=== PATIENT | female | born 1990 | race African-American/Black ===

== ENCOUNTER 2024-05-13 11:48 | Emergency (ER) | payer MEDICAID, SELFPAY ==
[2024-05-13 12:03] VITALS: BP 146/90; PULSE 82; TEMP 36.8; O2SAT 99; BMI 28.3
--- NOTE | 2024-05-13 15:40 | XR_ITS ---
The [address] [address] Patient Name: PRAVIN LOVELACE MRN: [id number] date: 1990 Sex: F Assigned Patient Location: ER Current Patient Location: ER Accession/Order Number: [id number] Exam Date: 05/13/2024 15:50 Report Date: 05/13/2024 16:57 At the request of: TREY PEDROZA Procedure: XR humerus LT EXAM: XR shoulder LT min 2V, XR humerus LT TECHNIQUE: Internal rotation, external rotation and scapular Y views left shoulder. AP and lateral views left humerus. HISTORY: Pain COMPARISON: None. FINDINGS: No fracture or dislocation. Soft tissues are unremarkable. No arthritic changes. XR/XR humerus LT IMPRESSION: No acute fracture or dislocation. Electronically authenticated by: LEIGH CHEUNG Date: 05/13/2024 16:57
--- NOTE | 2024-05-13 15:40 | XR_ITS ---
The [address] [address] Patient Name: PRAVIN LOVELACE MRN: [id number] date: 1990 Sex: F Assigned Patient Location: ER Current Patient Location: ER Accession/Order Number: [id number] Exam Date: 05/13/2024 15:50 Report Date: 05/13/2024 16:57 At the request of: TREY PEDROZA Procedure: XR shoulder LT min 2V EXAM: XR shoulder LT min 2V, XR humerus LT TECHNIQUE: Internal rotation, external rotation and scapular Y views left shoulder. AP and lateral views left humerus. HISTORY: Pain COMPARISON: None. FINDINGS: No fracture or dislocation. Soft tissues are unremarkable. No arthritic changes. XR/XR shoulder LT min 2V IMPRESSION: No acute fracture or dislocation. Electronically authenticated by: LEIGH CHEUNG Date: 05/13/2024 16:57
--- NOTE | 2024-05-13 15:41 | ED.UPPEXIN1 ---
Documented by User: HUGO Fried 05/13/24 17:21 HPI HPI - Extremity Injury (Upper) General Chief Complaint: Extremity Injury, Upper Stated Complaint: UPPER LEFT EXTREMITY LIMITED MOVEMENT Time Seen by Provider: 05/13/24 15:23 Source: patient Mode of arrival: walk-in Limitations: no limitations History of Present Illness HPI narrative: Patient is a 34-year-old female who presents to the emergency department for weakness in the left arm. She states 2 weeks ago she developed numbness to the left side of the face radiating into the left arm. She was seen at [place] emergency department and hospitalized with negative CT of the brain, negative cervical x-rays, chest x-ray. She also had an MRI of the brain and cervical spine while admitted. She had a telestroke consult, echocardiogram of the heart. She was discharged home with no medications. She states she is not able to see the specialist she was referred to in [place] for several months. She presents to this emergency department stating that she still having difficulty flexing her left arm at the elbow and feels weakness in the left bicep. She is requesting x-rays to see if her shoulder is dislocated. She reports pain radiating from the left glenohumeral joint into the left humerus. She is not concerned for . She denies any pain, weakness to the left forearm or hand although she does have occasional tingling to the left thumb. No falls or injuries. 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 Related Data Previous Rx's ?Medication ?Instructions ?Recorded methylprednisolone 4 mg tablets in See Rx Instructions .Route 05/13/24 a dose pack (Medrol (Driss)) .COMPLEX #21 ea Allergies Allergy/AdvReac Type Severity Reaction Status Date / Time No Known Drug Allergies Allergy Verified 05/13/24 12:09 Opioid HPI Opioid Management Most Recent Pain and Opioid Data: No Data to Display Review of Systems ROS Constitutional Denies: fever or chills Ears, nose, mouth, and throat Denies: throat pain Respiratory Denies: shortness of breath Gastrointestinal Denies: nausea or vomiting Musculoskeletal Reports: extremity pain and limited range of motion; Denies: back pain or neck pain Integumentary/Breast Denies: rash Neurological Reports: numbness in extremities and weakness in extremities; Denies: dizziness or vertigo Hematologic/Lymphatic Denies: easy bruising or easy bleeding PFSH PFS Social History Little interest or pleasure in doing things: not at all Feeling down, depressed, or hopeless: not at all Exam Narrative Exam Narrative: Gen.: Awake, alert, in no distress Head: Normocephalic, atraumatic ENT: Moist mucous membranes Respiratory: No respiratory distress Extremities: No bony tenderness of the left cervical spine or shoulder. Diffuse tenderness of the left glenohumeral joint with no palpable deformity. Limited abduction at the left shoulder and flexion at the left bicep. Normal movement of the fingers of the left hand with normal typewriter aligner strength of the left hand. Psych: Normal mood and affect Neuro: No focal neuro deficit Skin: Warm, dry, intact Constitutional Vital Signs, click to edit/add: Last Vital Signs Temp 98.3 F 05/13/24 12:03 Pulse 78 05/13/24 16:44 Resp 18 05/13/24 16:44 BP 160/100 H 05/13/24 16:44 Pulse Ox 98 05/13/24 16:44 O2 Del Method Room Air 05/13/24 12:03 Course Vital Signs Vital signs: Vital Signs Temperature 98.3 F 05/13/24 12:03 Pulse Rate 82 05/13/24 12:03 Respiratory Rate 18 05/13/24 12:03 Blood Pressure 146/90 H 05/13/24 12:03 Pulse Oximetry 99 05/13/24 12:03 Oxygen Delivery Method Room Air 05/13/24 12:03 Temperature 98.3 F 05/13/24 12:03 Pulse Rate 78 05/13/24 16:44 Respiratory Rate 18 05/13/24 16:44 Blood Pressure 160/100 H 05/13/24 16:44 Pulse Oximetry 98 05/13/24 16:44 Oxygen Delivery Method Room Air 05/13/24 12:03 MDM - Extremity Injury (Upper) MDM Narrative Medical decision making narrative: Patient's exam is consistent with weakness in the left upper arm. She has no other focal neurodeficits. She has distal sensation and movement to the left forearm and hand. The symptoms have been ongoing for 2 weeks, I did review her labs and the imaging studies from [facility] showing that the patient had an unremarkable MRI of the brain, MRI of the cervical spine as well as an echo. Patient is referred to neurology and orthopedics. She is placed on a steroid course. Follow-up with orthopedics and neurology and return to the ER if symptoms change or worsen. SHARED APC VISIT, PHYSICIAN ATTESTATION: [id number] I performed a substantive part of the MDM during the patient?s E/M visit. I personally evaluated and examined the patient. I personally made or approved the documented management plan and acknowledge its risk of complications. ? Medical Records Attestation: I reviewed the patient's medical records. Imaging Data XR humerus: Attestation: I have reviewed the pertinent imaging results. Radiologist's impression: ITS Impressions Humerus X-Ray 05/13/24 15:40 IMPRESSION: No acute fracture or dislocation. Electronically authenticated by: LEIGH CHEUNG Date: 05/13/2024 16:57 Shoulder X-Ray 05/13/24 15:40 IMPRESSION: No acute fracture or dislocation. Electronically authenticated by: LEIGH CHEUNG Date: 05/13/2024 16:57 Discharge Plan Discharge Chief Complaint: Extremity Injury, Upper Clinical Impression: Left arm weakness Patient Disposition: Home, Self-Care Time of Disposition Decision: 17:19 Condition: Good Mode of Transportation: Private Vehicle Prescriptions / Home Meds: New methylprednisolone [Medrol (Driss)] 4 mg tablets,dose pack See Rx Instructions .ROUTE .COMPLEX Qty: 21 0RF Rx Instructions: Taper as directed Print Language: Niuean Instructions: Paresthesia (ED) Referrals: Rhonda Curran DO [Physician] - As soon as possible Physician,Non-Staff, [Primary Care Provider] - 1 week Ander Burnham MD [Physician] - 05/20/24 11:00 am Discharge Date/Time: 05/13/24 17:28 Documented by User: Rogelio Salcido MD 05/13/24 19:31 HPI HPI - Extremity Injury (Upper) General Chief Complaint: Extremity Injury, Upper Stated Complaint: UPPER LEFT EXTREMITY LIMITED MOVEMENT Time Seen by Provider: 05/13/24 15:23 Related Data Previous Rx's ?Medication ?Instructions ?Recorded methylprednisolone 4 mg tablets in See Rx Instructions .Route 05/13/24 a dose pack (Medrol (Driss)) .COMPLEX #21 ea Allergies Allergy/AdvReac Type Severity Reaction Status Date / Time No Known Drug Allergies Allergy Verified 05/13/24 12:09 Opioid HPI Opioid Management Most Recent Pain and Opioid Data: No Data to Display PFSH PFSH Social History Little interest or pleasure in doing things: not at all Feeling down, depressed, or hopeless: not at all Exam Constitutional Vital Signs, click to edit/add: Last Vital Signs Temp 98.3 F 05/13/24 12:03 Pulse 78 05/13/24 16:44 Resp 18 05/13/24 16:44 BP 160/100 H 05/13/24 16:44 Pulse Ox 98 05/13/24 16:44 O2 Del Method Room Air 05/13/24 12:03 Course Vital Signs Vital signs: Vital Signs Temperature 98.3 F 05/13/24 12:03 Pulse Rate 82 05/13/24 12:03 Respiratory Rate 18 05/13/24 12:03 Blood Pressure 146/90 H 05/13/24 12:03 Pulse Oximetry 99 05/13/24 12:03 Oxygen Delivery Method Room Air 05/13/24 12:03 Temperature 98.3 F 05/13/24 12:03 Pulse Rate 78 05/13/24 16:44 Respiratory Rate 18 05/13/24 16:44 Blood Pressure 160/100 H 05/13/24 16:44 Pulse Oximetry 98 05/13/24 16:44 Oxygen Delivery Method Room Air 05/13/24 12:03 MDM - Extremity Injury (Upper) MDM Narrative Medical decision making narrative: Patient's exam is consistent with weakness in the left upper arm. She has no other focal neurodeficits. She has distal sensation and movement to the left forearm and hand. The symptoms have been ongoing for 2 weeks, I did review her labs and the imaging studies from [facility] showing that the patient had an unremarkable MRI of the brain, MRI of the cervical spine as well as an echo. Patient is referred to neurology and orthopedics. She is placed on a steroid course. Follow-up with orthopedics and neurology and return to the ER if symptoms change or worsen. SHARED APC VISIT, PHYSICIAN ATTESTATION: [id number] I performed a substantive part of the MDM during the patient?s E/M visit. I personally evaluated and examined the patient. I personally made or approved the documented management plan and acknowledge its risk of complications. I, Dr Salcido, have reviewed the above progress note and course of action in the ER; agree with the above. I have personally seen and evaluated this patient, gone over history and physical, and discussed disposition and treatment plan with the patient. I saw and evaluated the patient at discharge as well. Patient has no new acute motor or sensory or neurological deficits today. Patient does not want to go up to [place] to see her physical therapist, training, therapy. Patient currently has no PCP. Patient wants to do therapy locally. Patient was referred to local PCP, health department and was told that she can call and try to make a appointment to the local area. Patient also was given Dr. Burnham name and number. I also encouraged patient that even though [place] is 45 minutes away, if she is already established in their medical system and has therapy set up, she needs to do that until she can find something locally if possible. I initially had a very pleasant discharge conversation with the patient and discussed all the different options on how we could try to help her locally. Then when I was walking out of the room to help finish and complete the discharge, patient very quickly became agitated and angry and stated that she wants to leave right now, she is hungry, irritated that we have no better answers for her despite not having no new emergent acute new problems today. ? Imaging Data XR humerus: Radiologist's impression: ITS Impressions Humerus X-Ray 05/13/24 15:40 IMPRESSION: No acute fracture or dislocation. Electronically authenticated by: LEIGH CHEUNG Date: 05/13/2024 16:57 Shoulder X-Ray 05/13/24 15:40
[2024-05-13 16:44] VITALS: BP 160/100; PULSE 78; O2SAT 98
== END 2024-05-13 17:28 | disposition home or self-care (01) ==
PROVIDERS: Emergency Provider Emergency Medicine
DX: R53.1 Weakness (principal)
CPT/HCPCS: 73030; 73060; 99283